=== PATIENT | female | born 2000 | race Caucasian/White ===

== ENCOUNTER 2023-01-11 14:53 | Emergency (ER) | payer MEDICAID, SELFPAY ==
[2023-01-11 15:06] VITALS: BP 105/68; PULSE 105; RESP 18; TEMP 37.4; O2SAT 99; BMI 31.2
--- NOTE | 2023-01-11 15:30 | ED_ITS ---
Documented by User: LIGIA Vasquez 01/12/23 08:59 HPI - General Adult General: Chief complaint: Upper Respiratory Infection Stated complaint: sore throat, fever Time Seen by Provider: 01/11/23 15:14 Source: patient Mode of arrival: ambulatory Limitations: no limitations History of Present Illness: Patient is a 22-year-old female presents to ED today with complaint of fevers, body aches, sore throat. She states symptoms are present over the past 3 to 4 days. No sick contacts. Patient states she has a history of strep throat that has presented identically. She has noticed exudates on her tonsils. She is still eating/drinking well. No N/V/D. Onset (ago): day(s) Severity: mild Exacerbating factors: other (swallowing) Associated symptoms: Deny chest pain, dyspnea, headache(s), malaise, nausea, rash or vomiting Treatments prior to arrival: none Review of Systems Const: Reports: fever(s), chills and body aches; Denies: fatigue or malaise Eyes: Denies: change in vision, blurry vision, photophobia, floaters or seeing flashes ENMT: Reports: throat pain and odynophagia; Denies: ear or mastoid pain, ear discharge, nasal discharge, nasal congestion, post nasal drip or sinus pain Card: Denies: chest pain Resp: Denies: dyspnea GI: Denies: abdominal pain, nausea, vomiting or diarrhea Musc: Denies: neck pain Skin/Breast: Denies: rash Neuro: Denies: headache(s) Physical Exam Const: COMMON NORMALS: no acute distress, average body habitus, patient oriented x3, no limitations, healthy appearing, alert and well nourished GENERAL APPEARANCE: cooperative ORIENTATION/CONSCIOUSNESS: Yes awake, Yes oriented to person, Yes oriented to place and Yes oriented to time HENMT: COMMON NORMALS: normocephalic, atraumatic, hearing grossly normal bilaterally, external ears normal, EAC's normal, TM's normal bilaterally, Normal external nose present, Normal nasal mucous membranes and turbinates present and moist oral mucous membranes HEAD & SCALP: normal to inspection, normocephalic and atraumatic FACE & SINUS: normal facial exam and sinuses nontender NOSE: Normal external nose present and Normal nasal mucous membranes and turbinates present EXTERNAL EAR: Yes external ears normal EXTERNAL AUDITORY CANAL: EAC's normal TYMPANIC MEMBRANE: TM's normal bilaterally MOUTH: Normal oral and palatal mucosa present, lip normal, tongue normal and Normal salivary glands and ducts present; no audible dysphonia, no drooling and no muffled voice THROAT: tonsils normal, uvula midline and posterior oropharynx abnormal erythema Eye: COMMON NORMALS: Equal, round and reactive pupils present, EOMs intact bilaterally and conjunctivae normal CONJUNCTIVA: Yes conjunctivae normal PUPIL: Yes Equal, round and reactive pupils present Neck/C-Spine: COMMON NORMALS: full ROM, no lymphadenopathy and no meningeal signs Resp: COMMON NORMALS: normal respiratory effort Cardio: COMMON NORMALS: regular rate and regular rhythm RATE: regular rate RHYTHM: regular rhythm Neuro: COMMON NORMALS: patient oriented x3 SENSORIUM/ORIENTATION: Yes alert, Yes oriented to person, Yes oriented to place and Yes oriented to time MENINGEAL SIGNS: Yes no meningeal signs Course ED course: Care transferred to Nancy Vitale PA-C pending strep results. Vital Signs: Vital signs: Vital Signs Temperature 99.3 F 01/11/23 15:06 Pulse Rate 105 H 01/11/23 15:06 Respiratory Rate 18 01/11/23 15:06 Blood Pressure 105/68 01/11/23 15:06 Pulse Oximetry 99 01/11/23 15:06 Oxygen Delivery Me thod Room Air 01/11/23 15:06 MDM - General Adult Lab Data Laboratory Results Group A Strep Rapid Negative (Negative) 01/11/23 15:25 Discharge Plan Discharge Patient Disposition: Home Clinical Impression: Pharyngitis, H/O streptococcal pharyngitis Condition: Stable Prescriptions: New amoxicillin 500 mg capsule 500 mg PO Q8H 7 Days Qty: 21 0RF Discharge Orders: Discharge ED (Routine); Ordered 01/11/23 Ordered By: Nancy Vitale Referrals: Isabella Glaser MD [Primary Care Provider] - Discharge Diet: Advance as tolerated Discharge Activity: Increase activity as tolerated Patient Instructions: Pharyngitis (ED) Activity Restrictions/Additional Instructions: Rapid strep test to test for strep A was negative today however, There are other strains of strep which presents similarly. due to your recurrent strep throat, we will provide you a prescription to hold for the next few days to continue to monitor if symptoms continue or worsen. Watch for any continued or worsening fevers, continued or worsening painful sore throat with difficulty swallowing saliva or fluids, or development of rash on your chest. If these occur you should start antibiotics and get a follow-up appoint with your primary care doctor. Stand Alone Forms: Work/School Release Sign Out Sign Out Data: Patient Sign Out occurred on 01/11/23 at 17:11. Patient's care was discussed, and care was transferred from LIGIA Vasquez to LIGIA Pabon. Coding Level of Care Code ED Marketing Planning Manager for [employer] Documented by User: LIGIA Pabon 01/12/23 00:50 HPI - General Adult General: Chief complaint: Upper Respiratory Infection Stated complaint: sore throat, fever Time Seen by Provider: 01/11/23 15:14 Course Vital Signs: Vital signs: Vital Signs Temperature 99.3 F 01/11/23 15:06 Pulse Rate 105 H 01/11/23 15:06 Respiratory Rate 18 01/11/23 15:06 Blood Pressure 105/68 01/11/23 15:06 Pulse Oximetry 99 01/11/23 15:06 Oxygen Delivery Me thod Room Air 01/11/23 15:06 MDM - General Adult Medical Decision Making LIGIA Bull-C: Transfer of care at 1700. Patient's rapid strep test came back negative. I did perform a physical examination of bedside of this patient and it does appear she has somewhat of a petechial rash develop to the tonsillar pillars and soft palate. Patient reports a significant past medical history of recurrent strep infections. After discussion, patient is being given a prescription of amoxicillin to hold for the next couple of days. She is to continue monitoring her symptoms. If she continues to have fevers, sore throat, any difficulty with swallowing liquids or development of rash on her chest she needs to start the antibiotics. Otherwise, patient has improvement of her symptoms over the next couple of days she can continue to treat symptomatically with [id number] medications until she is back to baseline. Patient verbalizes understanding and agreement to treatment plan. Differential Diagnosis DDx: Strep A, viral pharyngitis, mononucleosis, peritonsillar abscess, postnasal drip pharyngitis Lab Data Laboratory Results Group A Strep Rapid Negative (Negative) 01/11/23 15:25 No radiology studies performed this visit Discharge Plan Discharge Patient Disposition: Home Clinical Impression: Pharyngitis, H/O streptococcal pharyngitis Condition: Stable Prescriptions: New amoxicillin 500 mg capsule 500 mg PO Q8H 7 Days Qty: 21 0RF Discharge Orders: Discharge ED (Routine); Ordered 01/11/23 Ordered By: Nancy Vitale Referrals: Isabella Glaser MD [Primary Care Provider] - Discharge Diet: Advance as tolerated Discharge Activity: Increase activity as tolerated Patient Instructions: Pharyngitis (ED) Activity Restrictions/Additional Instructions: Rapid strep test to test for strep A was negative today however, There are other strains of strep which presents similarly. due to your recurrent strep throat, we will provide you a prescription to hold for the next few days to continue to monitor if symptoms continue or worsen. Watch for any continued or worsening fevers, continued or worsening painful sore throat with difficulty swallowing saliva or fluids, or development of rash on your chest. If these occur you sh ould start antibiotics and get a follow-up appoint with your primary care doctor. Stand Alone Forms: Work/School Release Sign Out Sign Out Data: Patient Sign Out occurred on 01/11/23 at 17:11. Patient's care was discussed, and care was transferred from LIGIA Vasquez to LIGIA Pabon. Coding Level of Care Code ED Marketing Planning Manager for Briana Powell
[2023-01-11 17:09] LABS: Rapid Strep A Test Negative (Negative)
== END 2023-01-11 17:35 | disposition home or self-care (01) ==
PROVIDERS: Emergency Medicine; Emergency Provider Physician Assistant; PCP Pediatrics Adolescent Medicine
DX: J02.9 Acute pharyngitis, unspecified (principal)
CPT/HCPCS: 87081; 87880; 99283

== ENCOUNTER → 2023-03-03 08:42 | Outpatient (BNVA) | payer MEDICAID, SELFPAY | PROVIDERS: PCP Pediatrics Adolescent Medicine; Visit Provider Nurse Practitioner Women's Health | DX: Z30.9 Encounter for contraceptive management, unspecified (principal) | CPT/HCPCS: 81025 ==

== ENCOUNTER 2023-08-24 17:33 | Outpatient (CLI) | payer MEDICAID, SELFPAY | END 2023-08-24 17:34 | disposition home or self-care (01) | LOC: LAB 17:34 | PROVIDERS: PCP Pediatrics Adolescent Medicine; Visit Provider Nurse Practitioner Women's Health | DX: E28.2 Polycystic ovarian syndrome (principal) | CPT/HCPCS: 36415; 84702 ==

== ENCOUNTER 2023-08-26 16:57 | Outpatient (CLI) | payer MEDICAID, SELFPAY | END 2023-08-26 16:58 | disposition home or self-care (01) | LOC: LAB 16:58 | PROVIDERS: PCP Pediatrics Adolescent Medicine; Visit Provider Nurse Practitioner Women's Health | DX: O36.80X0 Pregnancy with inconclusive fetal viability, not applicable or unspecified (principal) | CPT/HCPCS: 36415; 84702 ==

== ENCOUNTER → 2023-08-31 08:20 | Outpatient (BNVA) | payer MEDICAID, SELFPAY | PROVIDERS: PCP Pediatrics Adolescent Medicine; Visit Provider Nurse Practitioner Women's Health | DX: Z34.90 Encounter for supervision of normal pregnancy, unspecified, unspecified trimester (principal) | CPT/HCPCS: 84702 ==

== ENCOUNTER → 2023-09-10 08:03 | Outpatient (BNVA) | payer MEDICAID, SELFPAY | PROVIDERS: PCP Pediatrics Adolescent Medicine; Visit Provider Nurse Practitioner Women's Health | DX: N92.6 Irregular menstruation, unspecified (principal); E28.2 Polycystic ovarian syndrome | CPT/HCPCS: 81025; 83036; 84439; 84443 ==

== ENCOUNTER → 2023-09-16 15:21 | Outpatient (BNVA) | payer MEDICAID, SELFPAY | PROVIDERS: PCP Pediatrics Adolescent Medicine; Visit Provider Obstetrics & Gynecology | DX: E28.2 Polycystic ovarian syndrome (principal); N92.6 Irregular menstruation, unspecified | CPT/HCPCS: 76801 ==

== ENCOUNTER → 2023-10-04 07:47 | Outpatient (BNVA) | payer MEDICAID, SELFPAY | PROVIDERS: PCP Pediatrics Adolescent Medicine; Visit Provider Nurse Practitioner Women's Health | DX: Z34.01 Encounter for supervision of normal first pregnancy, first trimester (principal); Z34.90 Encounter for supervision of normal pregnancy, unspecified, unspecified trimester | CPT/HCPCS: 80307; 82950; 84315; 85025; 86592; 86762; 86803; 86850; 86900; 87086; 87340; 87806 ==

== ENCOUNTER → 2023-10-15 08:14 | Outpatient (BNVA) | payer MEDICAID, SELFPAY | PROVIDERS: PCP Pediatrics Adolescent Medicine; Visit Provider Obstetrics & Gynecology | DX: Z34.01 Encounter for supervision of normal first pregnancy, first trimester (principal) | CPT/HCPCS: 84315; 87491; 87591; 88175 ==

== ENCOUNTER 2023-10-20 16:44 | Emergency (ER) | payer MEDICAID, SELFPAY ==
[2023-10-20 17:00] VITALS: BP 118/81; PULSE 87; RESP 16; TEMP 36.7; O2SAT 99; BMI 28.5
[2023-10-20 17:03] VITALS: BP 118/81; PULSE 87; O2SAT 99
[2023-10-20 17:07] LABS: Basophils % 0.4 %; Eosinophils # 0.1 10^3/uL (0.0-0.8); Eosinophils % 1.2 %; Hematocrit 37.9 % (36-47); Lymphocytes # 2.3 10^3/uL (0.8-4.8); Lymphocytes % 20.4 %; Mean Corpuscular HGB Conc 32.7 g/dL (30-55); Mean Corpuscular Hemoglobin 31.2 pg (27-33); Mean Corpuscular Volume 95.2 fl (85-98); Mean Platelet Volume 10.4 fL (7.4-10.4); Monocytes # 0.7 10^3/uL (0.2-0.9); Monocytes % 6.1 %; Neutrophils % 71.6 %; Nucleated Red Blood Cells % 0 %; Platelet Count 273 10^3/cmm (157-399); Red Blood Count 3.98 10^6/uL (3.85-5.65); Red Cell Distribution Width 12.2 % (12.1-15.1); White Blood Count 11.31 10^3/uL (3.29-11.43)
--- NOTE | 2023-10-20 17:13 | ED_ITS ---
HPI - 2 General: Chief complaint: Vaginal Bleeding Stated complaint: 13 wks preg - bleeding/cramping Time Seen by Provider: 10/20/23 16:51 Source: patient Mode of arrival: ambulatory Limitations: no limitations History of Present Illness: 23-year-old female states she is current ly 13 weeks she states that she had some very mild spotting last night with some cramping states that the bleeding is stopped today but still having some lower cramping whenever being checked. She rates the pain a 2 out of 10 she denies any fevers denies any vomiting or diarrhea. Denies passing any clots or tissue Associated symptoms: Reports abdominal pain; Deny dysuria, headache(s), nausea or vomiting Related Data Home Medications Medication Instructions Recorded Confirmed vits no.126-ferrous fum tab PO DAILY 09/10/23 10/15/23 28 mg iron-folic acid 800 mcg tablet (Classic ) Previous Rx's Medication Instructions Recorded ondansetron 4 mg disintegrating 4 mg PO Q8H PRN nausea and 09/21/23 tablet vomiting #60 tabs Allergies Allergy/AdvReac Type Severity Reaction Status Date / Time No Known Allergies Allergy Verified 10/15/23 13:33 Review of Systems 2 Const: Denies: fever(s), chills, body aches or change in appetite ENMT: Denies: throat pain or dental pain Card: Denies: chest pain Resp: Denies: dyspnea GI: Reports: abdominal pain; Denies: nausea, vomiting or diarrhea : Reports: vaginal bleeding; Denies: dysuria Musc: Denies: neck pain or back pain Skin/Breast: Denies: rash Neuro: Denies: headache(s) PFSH ED 2 PFSH: Medical History PCOS (polycystic ovarian syndrome) Surgical History No pertinent past surgical history Family History Denies family history of Colon cancer Ovarian cancer Diabetes Heart disease Breast cancer Hypertension Uterine cancer Thyroid disease Stroke Social History Smoking and tobacco/nicotine status: current every day tobacco/nicotine user Physical Exam 2 Const: COMMON NORMALS: no acute distress, patient oriented x3 and healthy appearing HENMT: COMMON NORMALS: normocephalic and atraumatic HEAD & SCALP: n ormocephalic and atraumatic Eye: COMMON NORMALS: conjunctivae normal CONJUNCTIVA: Yes conjunctivae normal Neck/C-Spine: COMMON NORMALS: full ROM Chest: COMMONS NORMALS: normal inspection of the chest Resp: COMMON NORMALS: normal respiratory effort Cardio: COMMON NORMALS: regular rate, regular rhythm and No murmurs present (Cardio) RATE: regular rate RHYTHM: regular rhythm GI: COMMON NORMALS: Normal to inspection, nondistended, normoactive bowel sounds present, Soft to palpation, non-tender and no masses PALPATION: Yes Soft to palpation Extremity: COMMON NORMALS: normal to inspection and full ROM Neuro: COMMON NORMALS: patient oriented x3, moves all extremities and no focal motor deficits Psych: COMMON NORMALS: mental status grossly normal, Normal thought process present and cooperative THOUGHT PROCESS: Normal thought process present Skin: COMMON NORMALS: no rashes or lesions noted and no wounds GENERAL SKIN EXAM: no rashes or lesions noted Course 2 Vital Signs: Vital signs: Vital Signs Temperature 98.0 F 10/20/23 17:00 Pulse Rate 87 10/20/23 17:03 Respiratory Rate 16 10/20/23 17:00 Blood Pressure 118/81 10/20/23 17:03 Pulse Oximetry 99 10/20/23 17:03 Oxygen Delivery Me thod Room Air 10/20/23 17:00 MDM - OB/Uterine Contractions Medical Decision Making Patient presents with cramping along with spotting in I did a bedside ultrasound showed IUP consistent dates heart rate 146 she is been well- appearing here no signs of appendicitis she is to follow-up with her OB and return if worsening she understands agrees to plan. Medical Records I reviewed the patient's medical records. Lab Data I reviewed the patient's lab results. 10/20/23 16:57 Laboratory Results WBC 11.31 10^3/uL (3.29-11.43) 10/20/23 16:57 RBC 3.98 10^6/uL (3.85-5.65) 10/20/23 16:57 Hgb 12.40 g/dL (11.27-16.99) 10/20/23 16:57 Hct 37.9 % (36-47) 10/20/23 16:57 MCV 95.2 fl (85-98) 10/20/23 16:57 MCH 31.2 pg (27-33) 10/20/23 16:57 MCHC 32.7 g/dL (30-55) 10/20/23 16:57 RDW 12.2 % (12.1-15.1) 10/20/23 16:57 Plt Count 273 10^3/cmm (157-399) 10/20/23 16:57 MPV 10.4 fL (7.4-10.4) 10/20/23 16:57 Neut % (Auto) 71.6 % 10/20/23 16:57 Lymph % (Auto) 20.4 % 10/20/23 16:57 [place] % (Auto) 6.1 % 10/20/23 16:57 Eos % (Auto) 1.2 % 10/20/23 16:57 Baso % (Auto) 0.4 % 10/20/23 16:57 Neut # (Auto) 8.10 10^3/uL (1.8-7.7) H 10/20/23 16:57 Lymph # (Auto) 2.3 10^3/uL (0.8-4.8) 10/20/23 16:57 [place] # (Auto) 0.7 10^3/uL (0.2-0.9) 10/20/23 16:57 Eos # (Auto) 0.1 10^3/uL (0.0-0.8) 10/20/23 16:57 Baso # (Auto) 0.0 10^3/uL (0.0-0.1) 10/20/23 16:57 Nucleated RBC % (auto) 0 % 10/20/23 16:57 Nucleated RBCs # 0.0 /100WBC 10/20/23 16:57 Ser , Semi-Qnt 22869.00 mIU/mL 10/20/23 16:57 Urine Color Yellow (Yellow) 10/20/23 18:09 Urine Appearance Cloudy (CLEAR) A 10/20/23 18:09 Urine pH 6.5 (5-7) 10/20/23 18:09 Ur Specific [place] 1.017 (1.005-1.030) 10/20/23 18:09 Urine Protein Negative (Negative) 10/20/23 18:09 Urine Glucose (UA) Negative (Normal) 10/20/23 18:09 Urine Ketones Negative (Negative) 10/20/23 18:09 Urine Blood Negative (Negative) 10/20/23 18:09 Urine Nitrate Negative (Negative) 10/20/23 18:09 Urine Bilirubin Negative (Negative) 10/20/23 18:09 Urine Urobilinogen 1.0 mg/dL (Negative) 10/20/23 18:09 Ur Leukocyte Esterase Trace (Negative) A 10/20/23 18:09 Urine RBC 0-2 /hpf (0-2) 10/20/23 18:09 Urine WBC 0-5 /hpf (0-5) 10/20/23 18:09 Ur Squamous Epith Cells 0-5 /hpf (0-5) 10/20/23 18:09 Amorphous Sediment Not Reportable 10/20/23 18:09 Urine Bacteria None seen /hpf (NONE) 10/20/23 18:09 Hyaline Casts 0-4 /lpf H 10/20/23 18:09 No radiology studies performed this visit Discharge Plan Discharge Patient Disposition: Home Clinical Impression: Threatened miscarriage Condition: Stable Prescriptions: No Action Classic 28 mg iron- 800 mcg tablet PO DAILY ondansetron 4 mg tablet,disintegrating 4 mg PO Q8H PRN (Reason: nausea and vomiting) Qty: 60 0RF Discharge Orders: Discharge ED (Routine); Ordered 10/20/23 Ordered By: Phillip Thomas Referrals: Isabella Glaser MD [Primary Care Provider] - Discharge Diet: Advance as tolerated Discharge Activity: Resume usual activity Patient Instructions: Threatened Miscarriage (ED) Coding Level of Care Code ED [address] [address] Service for Briana Powell
[2023-10-20 18:36] LABS: Bilirubin Urine Negative (Negative); Blood Urine Negative (Negative); Glucose Urine UA Negative (Normal); Ketones Urine Negative (Negative); Leukocyte Esterase Urine Trace (Negative); Nitrate Urine Negative (Negative); Protein Urine Negative (Negative); Specific Gravity, Urine 1.017 (1.005-1.030); Urine Appearance Cloudy (CLEAR); Urine Color Yellow (Yellow); pH Urine 6.5 (5-7)
[2023-10-20 18:41] LABS: Add Urine Microscopic? YES; Bacteria Urine None Seen /hpf; Hyaline Casts Urine 0-4 /lpf; RBC Urine 0-2 /hpf (0-2); Squamous Epithelial Cell Urine 0-5 /hpf (0-5); WBC Urine 0-5 /hpf (0-5)
[2023-10-20 19:02] LABS: Add Urine Culture? No
[2023-10-20 19:22] VITALS: BP 94/52; PULSE 60; O2SAT 97
== END 2023-10-20 19:23 | disposition home or self-care (01) ==
PROVIDERS: Emergency Provider Emergency Medicine; PCP Pediatrics Adolescent Medicine
DX: O20.0 Threatened abortion (principal); Z3A.13 13 weeks gestation of pregnancy; O99.331 Smoking (tobacco) complicating pregnancy, first trimester; F17.200 Nicotine dependence, unspecified, uncomplicated
CPT/HCPCS: 36415; 81001; 84702; 85025; 99283

== ENCOUNTER → 2023-11-11 08:39 | Outpatient (BNVA) | payer MEDICAID, SELFPAY | PROVIDERS: PCP Pediatrics Adolescent Medicine; Visit Provider Nurse Practitioner Women's Health | DX: Z34.01 Encounter for supervision of normal first pregnancy, first trimester (principal); Z34.90 Encounter for supervision of normal pregnancy, unspecified, unspecified trimester | CPT/HCPCS: 81000; 82105 ==

== ENCOUNTER → 2023-12-09 14:31 | Outpatient (BNVA) | payer MEDICAID, SELFPAY | PROVIDERS: PCP Pediatrics Adolescent Medicine; Visit Provider Nurse Practitioner Women's Health | DX: Z36.2 Encounter for other antenatal screening follow-up (principal); Z3A.20 20 weeks gestation of pregnancy | CPT/HCPCS: 76805 ==

== ENCOUNTER → 2024-01-04 13:51 | Outpatient (BNVA) | payer MEDICAID, SELFPAY | PROVIDERS: PCP Pediatrics Adolescent Medicine; Visit Provider Nurse Practitioner Women's Health | DX: Z34.92 Encounter for supervision of normal pregnancy, unspecified, second trimester (principal); Z3A.24 24 weeks gestation of pregnancy | CPT/HCPCS: 76816; 81000; 82950 ==

== ENCOUNTER 2024-01-23 16:29 | Outpatient (CLI) | payer MEDICAID, SELFPAY ==
[2024-01-23 16:36] VITALS: BP 112/65; PULSE 104
[2024-01-23 17:00] VITALS: BMI 32.1
[2024-01-23 17:02] VITALS: BP 109/59; PULSE 96
[2024-01-23 17:06] VITALS: BP 108/59; PULSE 85
[2024-01-23 17:08] LABS: Bilirubin Urine Negative (Negative); Blood Urine Non-haemolysed trace (Negative); Glucose Urine UA Negative (Normal); Ketones Urine Negative (Negative); Leukocyte Esterase Urine Negative (Negative); Nitrate Urine Negative (Negative); Protein Urine Negative (Negative); Specific Gravity, Urine 1.023 (1.005-1.030); Urine Appearance Cloudy (CLEAR); Urine Color Yellow (Yellow); Urobilinogen Urine 0.2 mg/dL (Negative)
[2024-01-23 17:11] LABS: Bacteria Urine 1+ /hpf; Hyaline Casts Urine 1.21 /lpf
[2024-01-23 17:21] VITALS: BP 105/63; PULSE 93
== END 2024-01-23 17:35 | disposition home or self-care (01) ==
LOC: OPOB 16:30 → OBGYN 16:31
PROVIDERS: PCP Pediatrics Adolescent Medicine; Visit Provider Obstetrics & Gynecology
DX: O36.8190 Decreased fetal movements, unspecified trimester, not applicable or unspecified (principal); Z3A.00 Weeks of gestation of pregnancy not specified; R10.9 Unspecified abdominal pain
CPT/HCPCS: 81001; 99211

== ENCOUNTER → 2024-02-03 13:30 | Outpatient (BNVA) | payer MEDICAID, SELFPAY | PROVIDERS: PCP Pediatrics Adolescent Medicine; Visit Provider Obstetrics & Gynecology | DX: O99.331 Smoking (tobacco) complicating pregnancy, first trimester (principal) | CPT/HCPCS: 84315; 85025 ==

== ENCOUNTER → 2024-02-24 10:56 | Outpatient (BNVA) | payer MEDICAID, SELFPAY | PROVIDERS: PCP Pediatrics Adolescent Medicine; Visit Provider Obstetrics & Gynecology | DX: Z34.01 Encounter for supervision of normal first pregnancy, first trimester (principal); Z3A.00 Weeks of gestation of pregnancy not specified | CPT/HCPCS: 84315 ==

== ENCOUNTER → 2024-03-17 14:09 | Outpatient (BNVA) | payer MEDICAID, SELFPAY | PROVIDERS: PCP Pediatrics Adolescent Medicine; Visit Provider Nurse Practitioner Women's Health | DX: Z34.90 Encounter for supervision of normal pregnancy, unspecified, unspecified trimester (principal) | CPT/HCPCS: 84315; 85025 ==

== ENCOUNTER → 2024-03-31 15:11 | Outpatient (BNVA) | payer MEDICAID, SELFPAY | PROVIDERS: PCP Pediatrics Adolescent Medicine; Visit Provider Obstetrics & Gynecology | DX: Z34.01 Encounter for supervision of normal first pregnancy, first trimester (principal) | CPT/HCPCS: 84315; 87081 ==

== ENCOUNTER → 2024-04-05 14:17 | Outpatient (BNVA) | payer MEDICAID, SELFPAY | PROVIDERS: PCP Pediatrics Adolescent Medicine; Visit Provider Nurse Practitioner Women's Health | DX: O26.893 Other specified pregnancy related conditions, third trimester (principal); Z3A.36 36 weeks gestation of pregnancy | CPT/HCPCS: 76816 ==

== ENCOUNTER → 2024-04-07 15:22 | Outpatient (BNVA) | payer MEDICAID, SELFPAY | PROVIDERS: PCP Pediatrics Adolescent Medicine; Visit Provider Obstetrics & Gynecology | DX: Z34.90 Encounter for supervision of normal pregnancy, unspecified, unspecified trimester (principal) | CPT/HCPCS: 84315 ==

== ENCOUNTER → 2024-04-14 16:06 | Outpatient (BNVA) | payer MEDICAID, SELFPAY | PROVIDERS: PCP Pediatrics Adolescent Medicine; Visit Provider Obstetrics & Gynecology | DX: Z34.90 Encounter for supervision of normal pregnancy, unspecified, unspecified trimester (principal) | CPT/HCPCS: 84315 ==

== ENCOUNTER 2024-04-17 20:11 | Inpatient (IN) | payer MEDICAID, SELFPAY ==
[2024-04-17] VITALS (9 sets, daily range): BP systolic 113–130; BP diastolic 59–84; PULSE 78–104; BMI 36.5
--- NOTE | 2024-04-17 10:04 | PM.OPHPUD ---
Labor & Delivery H&P Update Date of Procedure: April 17, 2024 Date H&P Performed: 04/14/24 Changes to previous documentation: 23-year-old female G1, P0 at 39 weeks gestation with JACE 04/25/2023 admitted to labor and delivery for induction of labor with cervical ripening. EFM?category 1 Cervix?closed/thick Ultrasound confirmation of vertex presentation. Discussion in great depth of Cytotec used for cervical ripening and if nonreassuring monitoring occurs may indicate need for section delivery instead of a vaginal delivery. Pitocin also reviewed for increasing contractions and contraction intensity if needed. Patient and partner had many questions stating that Cytotec was not FDA approved for induction and risk involved. I reviewed Cytotec/Cervidil medication use for cervical ripening. I also discussed the option of counseling induction awaiting 1 or 2 weeks more for spontaneous labor to occur, patient and significant other elected to proceed with Cytotec. I reviewed the baby looks good on external monitoring and that induction elective at this time if she would desire to wait. Admission Diagnosis: Primary indication for procedure: Elective induction of labor Planned procedure: Cervical ripening with Cytotec/induction of labor Related Problem List Diagnoses (1) 39 weeks gestation of : Admit for elective induction of labor with cervical ripening?Cytotec. (2) Anemia complicating , third trimester: (3) ASCUS (atypical squamous cells of undetermined significance) on gynecologic Papanicolaou smear complicating , antepartum: (4) Rubella non-immune status, antepartum: (5) Tobacco use in : (6) Anxiety and depression: (7) Supervision of normal first :
[2024-04-17 10:54] LABS: Basophils % 0.3 %; Eosinophils # 0.1 10^3/uL (0.0-0.8); Eosinophils % 1.1 %; Hematocrit 33.2 % (36-47); Lymphocytes # 1.6 10^3/uL (0.8-4.8); Lymphocytes % 17.2 %; Mean Corpuscular Hemoglobin 29.2 pg (27-33); Mean Corpuscular Volume 94.1 fl (85-98); Mean Platelet Volume 11.3 fL (7.4-10.4); Monocytes # 1.2 10^3/uL (0.2-0.9); Monocytes % 12.1 %; Neutrophils # 6.52 10^3/uL (1.8-7.7); Neutrophils % 68.9 %; Nucleated Red Blood Cells % 0 %; Platelet Count 238 10^3/cmm (157-399); Red Blood Count 3.53 10^6/uL (3.85-5.65); Red Cell Distribution Width 13.3 % (12.1-15.1); White Blood Count 9.47 10^3/uL (3.29-11.43)
[2024-04-17] MEDS: miSOPROStol 100 mcg tablet 25 MCG VAGINAL ×2 (11:11→20:13)
--- NOTE | 2024-04-17 20:35 | P.PN_ITS ---
CIVIL GEOTECHNICAL ENGINEER Subjective 2 Subjective: Interval history: This note was written on April 17, 2024, at 1735 23 y.o. G1 At 39 w 0 d No complications Admitted this morning for elective induction of labor OB sono done 04-05-24 - Vtx; WNL GBS negative fetus reassuring Cervix: 1 cm / long / -4 Plan repeat Cytotec 25 ug intravaginal Labor: Station: +1 Amniotic Membrane Status: Intact Monitor Mode: Palpation Contraction Pattern: Irregular Vitals/I&O/Wt Last Vital Signs Temp 99.3 F 04/18/24 13:12 Pulse 98 04/18/24 14:37 BP 112/58 04/18/24 14:37 Pulse Ox 98 04/18/24 00:22 O2 Del Method Room Air 04/17/24 09:08 04/18/24 04/18/24 04/18/24 06:59 14:59 22:59 Intake Total 1100 / 1100 1600 / 1600 1000 / 2600 Balance 1100 / 1100 1600 / 1600 1000 / 2600 Weight last 48 hrs Weight 219 lb 8 oz Physical Exam 2 Urinary Catheter Management: Guerrero Latex: Cath Placed During This Visit: yes, but has since been removed by the nurse Reason for Continuing Indwelling Catheter: Decision to DC Catheter Urinary Catheter Date of Insertion: 04/18/24 Urinary Catheter Time of Insertion: 01:05 Date Urinary Catheter Removed: 04/18/24 Time Urinary Catheter Discontinued: 09:28 Data 04/17/24 10:47 A&P Assessment and plan (1) 39 weeks gestation of : PDMP PDMP Reviewed: Not Reviewed Attestations 2 Medical Necessity Statement*: Patient at 39 w 0 d; admitted for induction of labor Coding Level of Care Code Acute Code for Chg Fwd Diagnoses 39 weeks gestation of Z3A.39 Time Spent (min) 30
--- NOTE | 2024-04-17 22:40 | P.PN_ITS ---
BULK PLANT AGENT Subjective 2 Subjective: Interval history: Fetus reassuring Comfortable with epidural Cx: 1 cm / long / -3 Labor: Station: +1 Amniotic Membrane Status: Intact Monitor Mode: Palpation Contraction Pattern: Irregular Vitals/I&O/Wt Last Vital Signs Temp 99.3 F 04/18/24 13:12 Pulse 98 04/18/24 14:37 BP 112/58 04/18/24 14:37 Pulse Ox 98 04/18/24 00:22 O2 Del Method Room Air 04/17/24 09:08 04/18/24 04/18/24 04/18/24 06:59 14:59 22:59 Intake Total 1100 / 1100 1600 / 1600 1000 / 2600 Balance 1100 / 1100 1600 / 1600 1000 / 2600 Weight last 48 hrs Weight 219 lb 8 oz Physical Exam 2 Urinary Catheter Management: Guerrero Latex: Cath Placed During This Visit: yes, but has since been removed by the nurse Reason for Continuing Indwelling Catheter: Decision to DC Catheter Urinary Catheter Date of Insertion: 04/18/24 Urinary Catheter Time of Insertion: 01:05 Date Urinary Catheter Removed: 04/18/24 Time Urinary Catheter Discontinued: 09:28 Data 04/17/24 10:47 A&P Assessment and plan (1) 39 weeks gestation of : PDMP PDMP Reviewed: Not Reviewed Attestations 2 Medical Necessity Statement*: Patient at 39 w 0 d; admitted for induction of labor Coding Level of Care Code Acute Code for Chg Fwd Diagnoses 39 weeks gestation of Z3A.39 Time Spent (min) 30
[2024-04-17] MEDS: lactated ringers 1,000 ML 999 ML IV (23:09)
[2024-04-17] MEDS: ondansetron 2 mg/ML SDV 2 mL 4 MG IVP (23:54)
[2024-04-18] VITALS (56 sets, daily range): BP systolic 90–145; BP diastolic 51–90; PULSE 72–116; RESP 16; TEMP 36.9–37.7; O2SAT 98–99
[2024-04-18] MEDS: dextrose 5%-lactated ringers 1,000 ML 125 ML IV ×2 (00:10→08:10)
[2024-04-18] MEDS: ROPivacaine syringe 100 MG/50 ML SYRINGE 13 MG EPIDURAL ×4 (00:20→09:27)
--- NOTE | 2024-04-18 00:21 | ANES.PREANE2 ---
Pre-Anesthetic Assessment Height/Weight: Height 1.65 m Weight 99.564 kg Pulse BP Pulse Ox O2 Del Method 83 132/88 99 Room Air 04/18/24 00:18 04/18/24 00:18 04/18/24 00:17 04/17/24 09:08 Preop Diagnosis: labor pain epidural Familial anesthetic complications: none Was Beta Raven taken within 24 hours: N/A Was Clonidine taken within 24 hours: N/A Last Intake: 22:30 Social No alcohol and No tobacco Exam alert and oriented x 3 Airway Submandibular: within normal limits Cervical ROM: within normal limits Mallampati: Class II Dentition: full History/ROS No significant history except as noted GI Gastroesophageal Reflux Disease Anesthetic Plan ASA status: 2 Anesthesia: Anesthesia Evaluation and Regional (specify below) Medications/Allergies Home Medications ?Medication ?Instructions ?Recorded ?Confirmed ?Last Taken ?Type vits no.126-ferrous fum 1 tab PO DAILY 09/10/23 04/17/24 Unknown History 28 mg iron-folic acid 800 mcg tablet (Classic ) famotidine 20 mg tablet 20 mg PO BID #60 tabs 01/04/24 04/17/24 Unknown Rx Allergies Allergy/AdvReac Type Severity Reaction Status Date / Time No Known Allergies Allergy Verified 04/14/24 15:26 Current Medications Generic Name Dose Route Start Last Admin Trade Name Freq PRN Reason Stop Dose Admin Lactated Ringer's 1,000 mls @ 999 mls/hr 04/17/24 22:50 04/17/24 23:09 Lactated Ringers IV 999 mls/hr .Q1H1M PRN Administration See label comments Ondansetron HCl 4 mg 04/17/24 10:10 04/17/24 23:54 Ondansetron 2 Mg/Ml Sdv 2 Ml IVP 4 mg Q4H PRN Administration NAUSEA AND VOMITING PFSH Anesthesia Medical History No pertinent past medical history neghx: htn, dm, thyroid, dvt/pe PCP: none PCOS (polycystic ovarian syndrome) Surgical History No pertinent past surgical history Family History Denies family history of Colon cancer Ovarian cancer Diabetes Heart disease Breast cancer Hypertension Uterine cancer Thyroid disease Stroke Social History Smoking and tobacco/nicotine status: former use of tobacco/nicotine (10/2023) Female Reproductive History : 1 Data Anesthesia 04/17/24 10:47 Short CBC 04/17/24 Range/Units 10:47 WBC 9.47 (3.29-11.43) 10^3/uL Hgb 10.30 L (11.27-16.99) g/dL Hct 33.2 L (36-47) % MCV 94.1 (85-98) fl Plt Count 238 (157-399) 10^3/cmm Neut % (Auto) 68.9 % Neut # (Auto) 6.52 (1.8-7.7) 10^3/uL Blood Bank 04/17/24 10:47 Blood Type O Positive Rho(D) Type Rh positive Antibody Screen Negative Cardiac Studies: No Data to Display
--- NOTE | 2024-04-18 00:24 | ANES.PROC ---
Anesthesia Procedures Procedure/Date: 04/18/24 Epidural: Time Out Performed: Yes Consents Signed: Procedure Consent Consent: from patient, risks and benefits reviewed and patient agrees to proceed Lumbar Level: L3-L4 Epidural position: sitting Epidural procedure: sterile prep of area, 1% lidocaine to numb the area, 18 g needle, negative for paresthesia passed, test dose given, 1.5% xylocaine 1:200k epi, placed PCEA, no systemic response, sterile dressing applied, L.U.D. no apparent complications and 0.2% Ropiavacaine @ mls/hr (13) Additional Comments: LELAND at 6.5, taped at 12 at skin. negative heme/CSF upon aspiration.
--- NOTE | 2024-04-18 01:10 | PM.OBGYPN ---
DIRECTOR BUSINESS INTEGRATION Subjective Subjective: Interval history: Fetus reassuring Comfortable with epidural Cx: 4 / 95 / -1 Labor: Station: +1 Amniotic Membrane Status: Intact Monitor Mode: Palpation Contraction Pattern: Irregular Vitals/I&O/Wt Last Vital Signs Temp 99.3 F 04/18/24 13:12 Pulse 82 04/18/24 18:30 Resp 16 04/18/24 18:30 BP 118/72 04/18/24 18:30 Pulse Ox 98 04/18/24 00:22 O2 Del Method Room Air 04/17/24 09:08 04/18/24 04/18/24 04/18/24 06:59 14:59 22:59 Intake Total 1100 / 1100 1600 / 1600 1000 / 2600 Balance 1100 / 1100 1600 / 1600 1000 / 2600 Weight last 48 hrs Weight 219 lb 8 oz Physical Exam Urinary Catheter Management: Guerrero Latex: Cath Placed During This Visit: yes, but has since been removed by the nurse Reason for Continuing Indwelling Catheter: Decision to DC Catheter Urinary Catheter Date of Insertion: 04/18/24 Urinary Catheter Time of Insertion: 01:05 Date Urinary Catheter Removed: 04/18/24 Time Urinary Catheter Discontinued: 09:28 Data 04/17/24 10:47 A&P Assessment and plan (1) 39 weeks gestation of : PDMP PDMP Reviewed: Not Reviewed Attestations Medical Necessity Statement*: Patient at 39 w 0 d; admitted for induction of labor Coding Level of Care Code Acute Code for Chg Fwd Diagnoses 39 weeks gestation of Z3A.39 Time Spent (min) 30
--- NOTE | 2024-04-18 08:00 | P.PN_ITS ---
PEDIATRIC CRITICAL CARE NURSE Subjective 2 Subjective: Interval history: Fetus reassuring Comfortable with epidural Cx: 9.5 / -1 Labor: Station: +1 Amniotic Membrane Status: Intact Monitor Mode: Palpation Contraction Pattern: Irregular Vitals/I&O/Wt Last Vital Signs Temp 99.3 F 04/18/24 13:12 Pulse 82 04/18/24 18:30 Resp 16 04/18/24 18:30 BP 118/72 04/18/24 18:30 Pulse Ox 98 04/18/24 00:22 O2 Del Method Room Air 04/17/24 09:08 04/18/24 04/18/24 04/18/24 06:59 14:59 22:59 Intake Total 1100 / 1100 1600 / 1600 1000 / 2600 Balance 1100 / 1100 1600 / 1600 1000 / 2600 Weight last 48 hrs Weight 219 lb 8 oz Physical Exam 2 Urinary Catheter Management: Guerrero Latex: Cath Placed During This Visit: yes, but has since been removed by the nurse Reason for Continuing Indwelling Catheter: Decision to DC Catheter Urinary Catheter Date of Insertion: 04/18/24 Urinary Catheter Time of Insertion: 01:05 Date Urinary Catheter Removed: 04/18/24 Time Urinary Catheter Discontinued: 09:28 Data 04/17/24 10:47 A&P Assessment and plan (1) 39 weeks gestation of : PDMP PDMP Reviewed: Not Reviewed Attestations 2 Medical Necessity Statement*: Patient at 39 w 0 d; admitted for induction of labor Coding Level of Care Code Acute Code for Chg Fwd Diagnoses 39 weeks gestation of Z3A.39 Time Spent (min) 30
--- NOTE | 2024-04-18 09:25 | PM.DELIVERY ---
Delivery Note: Date of delivery: April 18, 2024 Pre-delivery diagnoses: 39 w 0 d induction of labor Post-delivery diagnoses: 39 w 0 d induction of labor vaginal delivery repair of first-degree perineal laceration Procedure: induction of labor vaginal delivery repair of first-degree perineal laceration Op report anesthesia: Epidural Delivering Physician: Todd Neil MD Estimated blood loss (mL): 300 Findings: , vigorous infant Cord gases and blood obtained Normal placenta and cord Small 2 cm first-degree perineal laceration repaired EBL: 300 cc No complications Pre-Delivery Course: normal labor course fetus reassuring throughout Delivery: vaginal Post-Delivery Status: good History History History 1 Term 0 Miscarriages/Ectopic Living Children A&P Assessment and plan (1) Vaginal delivery: PDMP PDMP Reviewed: Not Reviewed Coding Level of Care Code Acute Code for Chg Fwd Diagnoses Vaginal delivery O80 Time Spent (min) 60
[2024-04-18] MEDS: oxytocin 30 UNIT/500 ML BAG 600 UNIT IV (10:09)
[2024-04-18] MEDS: benzocaine-menthol 78 gm Canister 1 SPRAY TOPICAL (13:12)
[2024-04-18] MEDS: lanolin oint 7 gm 1 APPLIC TOPICAL (13:12)
[2024-04-18] MEDS: acetaminophen 325 mg Tablet 650 MG PO (13:12)
[2024-04-18] MEDS: docusate sodium 100 mg Capsule PO (17:37)
[2024-04-18] MEDS: ibuprofen 800 mg tablet PO (21:07)
[2024-04-18 22:50] LABS: Hematocrit 29.7 % (36-47); Mean Corpuscular HGB Conc 31.6 g/dL (30-55); Mean Corpuscular Hemoglobin 29.8 pg (27-33); Mean Corpuscular Volume 94.3 fl (85-98); Mean Platelet Volume 11.3 fL (7.4-10.4); Platelet Count 190 10^3/cmm (157-399); Red Blood Count 3.15 10^6/uL (3.85-5.65); Red Cell Distribution Width 13.6 % (12.1-15.1); White Blood Count 15.43 10^3/uL (3.29-11.43)
[2024-04-19 03:50] VITALS: BP 109/64; PULSE 81; RESP 16; TEMP 36.8
--- NOTE | 2024-04-19 08:00 | ANE.PACU2 ---
Inpatient post-anesthesia follow up: Airway intact: Yes Vital signs: Temperature 97.9 F Pulse Rate 92 Respiratory Rate 16 Blood Pressure 112/68 Pulse Oximetry 98 Oxygen Delivery Me thod Room Air Oxygen Flow Rate Fraction of Inspir ed Oxygen Hydration adequate: Yes Nausea and vomiting: No Pain level: 1 Mental status: Baseline Epidural Start/End: Epidural Start Date: 04/18/24 Epidural Start Time: 00:00 Epidural End Date: 04/18/24 Epidural End Time: 00:32
[2024-04-19] MEDS: ibuprofen 800 mg tablet PO ×2 (09:54→16:02)
[2024-04-19] MEDS: PRENATAL VIT NO.130/IRON/FOLIC 1 EACH TABLET PO (09:54)
[2024-04-19] MEDS: docusate sodium 100 mg Capsule PO (09:54)
[2024-04-19 09:55] VITALS: BP 105/67; PULSE 96; RESP 16; TEMP 36.6
[2024-04-19 15:30] VITALS: BP 112/68; PULSE 92; RESP 16; TEMP 36.6; O2SAT 98
== END 2024-04-19 16:22 | disposition home or self-care (01) | DRG 807 ==
LOC: OPOB 04-25 07:50
PROVIDERS: Obstetrics & Gynecology; Admitting Provider Obstetrics & Gynecology; PCP Pediatrics Adolescent Medicine; Visit Provider Obstetrics & Gynecology
DX: O99.02 Anemia complicating childbirth (principal); Z37.0 Single live birth; Z3A.39 39 weeks gestation of pregnancy; F41.9 Anxiety disorder, unspecified; F32.A Depression, unspecified; O99.344 Other mental disorders complicating childbirth; O70.0 First degree perineal laceration during delivery; Z87.891 Personal history of nicotine dependence
CPT/HCPCS: 36415; 51702; 59025; 59409; 85025; 85027; 86850; 86900; 96374; J2405; J2590; J2795; J7120; J7121; J9999

== ENCOUNTER 2024-05-11 07:51 | Emergency (ER) | payer MEDICAID, SELFPAY ==
[2024-05-11] VITALS (22 sets, daily range): BP systolic 99–138; BP diastolic 68–89; PULSE 68–91; RESP 24; TEMP 36.5; O2SAT 95–100; BMI 30.4
[2024-05-11 08:45] LABS: Basophils # 0.1 10^3/uL (0.0-0.1); Basophils % 0.7 %; Eosinophils # 0.3 10^3/uL (0.0-0.8); Hematocrit 40.8 % (36-47); Lymphocytes # 1.8 10^3/uL (0.8-4.8); Lymphocytes % 25.3 %; Mean Corpuscular HGB Conc 30.9 g/dL (30-55); Mean Corpuscular Hemoglobin 28.7 pg (27-33); Mean Corpuscular Volume 92.9 fl (85-98); Mean Platelet Volume 10.4 fL (7.4-10.4); Monocytes # 0.6 10^3/uL (0.2-0.9); Monocytes % 8.1 %; Neutrophils # 4.31 10^3/uL (1.8-7.7); Neutrophils % 61.6 %; Nucleated Red Blood Cells % 0 %; Platelet Count 369 10^3/cmm (157-399); Red Blood Count 4.39 10^6/uL (3.85-5.65); Red Cell Distribution Width 12.5 % (12.1-15.1)
--- NOTE | 2024-05-11 08:47 | ED_ITS ---
HPI - Abdominal Pain 2 General: Chief Complaint: Abdominal Pain Stated Complaint: abdominal pain Time Seen by Provider: 05/11/24 07:57 History of Present Illness: 23-year-old female who presents emergenc y room with complaint of right lower quadrant pain began last night. Patient was a pain in her right flank rating down to the groin she denies any hematuria or dysuria. She does have some discolored vaginal discharge. She is proximately 3 weeks . Has had vomiting and diarrhea denies medic easy melena hematemesis coffee-ground emesis. Associated Symptoms: Reports diarrhea, nausea and vomiting; Denies chills, dysuria and fever(s) Related Data Previous Rx's ?Medication ?Instructions ?Recorded ciprofloxacin HCl 500 mg tablet 500 mg PO BID #20 tabs 05/11/24 Allergies Allergy/AdvReac Type Severity Reaction Status Date / Time No Known Allergies Allergy Verified 05/11/24 08:14 Review of Systems 2 Const: Denies: fever(s) or chills Card: Denies: chest pain Resp: Denies: dyspnea GI: Reports: abdominal pain, nausea, vomiting and diarrhea : Reports: vaginal discharge; Denies: dysuria, urinary frequency or urinary urgency Musc: Denies: neck pain or back pain Skin/Breast: Denies: rash PFSH ED 2 PFSH: Medical History Vaginal delivery 39 weeks gestation of No pertinent past medical history neghx: htn, dm, thyroid, dvt/pe PCP: none PCOS (polycystic ovarian syndrome) Surgical History No pertinent past surgical history Family History Denies family history of Colon cancer Ovarian cancer Diabetes Heart disease Breast cancer Hypertension Uterine cancer Thyroid disease Stroke Social History Smoking and tobacco/nicotine status: former use of tobacco/nicotine (10/2023) Physical Exam 2 Const: GENERAL APPEARANCE: cooperative ORIENTATION/CONSCIOUSNESS: Yes awake, Yes oriented to person, Yes oriented to place and Yes oriented to time HENMT: COMMON NORMALS: normocephalic, atraumatic and hearing grossly normal bilaterally HEAD & SCALP: normocephalic and atraumatic Resp: COMMON NORMALS: normal respiratory effort, No retractions, No use of accessory muscles and clear to auscultation bilaterally AUSCULTATION: clear to auscultation bilaterally Cardio: COMMON NORMALS: regular rate, regular rhythm and No murmurs present (Cardio) RATE: regular rate RHYTHM: regular rhythm GI: COMMON NORMALS: No hepatosplenomegaly present AUSCULTATION: Yes normoactive bowel sounds PALPATION: Yes Tenderness to palpation present (GI), No Guarding due to palpation present (GI) and Yes No hepatosplenomegaly present Extremity: COMMON NORMALS: normal to inspection, capillary refill normal, no clubbing, cyanosis or edema, no calf tenderness and no pedal edema Neuro: SENSORIUM/ORIENTATION: Yes oriented to person, Yes oriented to place and Yes oriented to time Skin: COMMON NORMALS: no rashes or lesions noted GENERAL SKIN EXAM: no rashes or lesions noted Course 2 Vital Signs: Vital signs: Vital Signs Temperature 97.7 F 05/11/24 08:06 Pulse Rate 68 05/11/24 09:11 Respiratory Rate 24 H 05/11/24 08:06 Blood Pressure 111/86 05/11/24 10:40 Pulse Oximetry 97 05/11/24 10:40 Oxygen Delivery Me thod Room Air 05/11/24 08:06 MDM - Abdominal Pain Medical Decision Making Presentation consistent with nephrolithiasis on CT there is evidence of having recently passed stone to 3.3 mm stone within the bladder and evidence of mild hydronephrosis. She also has signs of an acute urinary tract infection on her urine. White count not significantly elevated. Discharge home discussed with her she likely had a kidney stone and also Luxiq has a concurrent infection will start on oral antibiotics. Strain is urine for stone and will make arrangements for follow-up with urology Medical Records I reviewed the patient's medical records. Lab Data I reviewed the patient's lab results. 05/11/24 08:40 05/11/24 08:40 Labs/Radiology: Radiology Impressions Abdomen/Pelvis CT 05/11/24 10:07 IMPRESSION: 1. Very slight dilatation of the RIGHT renal pelvis and periureteral stranding. No obstructing calcification within the ureter. 2. In the dependent portion of the urinary bladder is a 3.3 mm calcification. This stone may have been recently extruded from the LEFT ureter into the bladder. 3. Additional nonobstructing very small bilateral renal calcifications. 4. Normal appendix. 5. Uterine enlargement consistent with recent vaginal . Laboratory Results WBC 7.00 10^3/uL (3.29-11.43) 05/11/24 08:40 RBC 4.39 10^6/uL (3.85-5.65) 05/11/24 08:40 Hgb 12.60 g/dL (11.27-16.99) 05/11/24 08:40 Hct 40.8 % (36-47) 05/11/24 08:40 MCV 92.9 fl (85-98) 05/11/24 08:40 MCH 28.7 pg (27-33) 05/11/24 08:40 MCHC 30.9 g/dL (30-55) 05/11/24 08:40 RDW 12.5 % (12.1-15.1) 05/11/24 08:40 Plt Count 369 10^3/cmm (157-399) 05/11/24 08:40 MPV 10.4 fL (7.4-10.4) 05/11/24 08:40 Neut % (Auto) 61.6 % 05/11/24 08:40 Lymph % (Auto) 25.3 % 05/11/24 08:40 [place] % (Auto) 8.1 % 05/11/24 08:40 Eos % (Auto) 4.0 % 05/11/24 08:40 Baso % (Auto) 0.7 % 05/11/24 08:40 Neut # (Auto) 4.31 10^3/uL (1.8-7.7) 05/11/24 08:40 Lymph # (Auto) 1.8 10^3/uL (0.8-4.8) 05/11/24 08:40 [place] # (Auto) 0.6 10^3/uL (0.2-0.9) 05/11/24 08:40 Eos # (Auto) 0.3 10^3/uL (0.0-0.8) 05/11/24 08:40 Baso # (Auto) 0.1 10^3/uL (0.0-0.1) 05/11/24 08:40 Nucleated RBC % (auto) 0 % 05/11/24 08:40 Nucleated RBCs # 0.0 /100WBC 05/11/24 08:40 Sodium 140 mmol/L (136-145) 05/11/24 08:40 Potassium 4.0 mmol/L (3.5-5.1) 05/11/24 08:40 Chloride 107 mmol/L (98-107) 05/11/24 08:40 Carbon Dioxide 22 mmol/L (22-29) 05/11/24 08:40 Anion Gap 15.0 (5-19) 05/11/24 08:40 BUN 10 mg/dL (6-20) 05/11/24 08:40 Creatinine 1.0 mg/dL (0.5-0.9) H 05/11/24 08:40 GFR Calculation 68.7 mL/min (90-130) L 05/11/24 08:40 Glucose 102 mg/dL (65-115) 05/11/24 08:40 Calculated Osmolality 289 mOsm/kg (285-295) 05/11/24 08:40 Calcium 8.9 mg/dL (8.5-10.5) 05/11/24 08:40 Total Bilirubin 0.2 mg/dL (0.15-1.2) 05/11/24 08:40 AST 23 U/L (0-32) 05/11/24 08:40 ALT 37 U/L (0-33) H 05/11/24 08:40 Alkaline Phosphatase 91 U/L (35-105) 05/11/24 08:40 Total Protein 7.5 g/dL (6.6-8.7) 05/11/24 08:40 Albumin 4.1 g/dL (3.5-5.2) 05/11/24 08:40 Globulin 3.4 g/dL (1.3-4.6) 05/11/24 08:40 HCG, Qual Negative (Negative) 05/11/24 08:40 Urine Color Yellow (Yellow) 05/11/24 09:06 Urine Appearance Cloudy (CLEAR) A 05/11/24 09:06 Urine pH 6 (5-7) 05/11/24 09:06 Ur Specific [place] 1.020 (1.005-1.030) 05/11/24 09:06 Urine Protein 1+ (Negative) H 05/11/24 09:06 Urine Glucose (UA) Norm (Normal) 05/11/24 09:06 Urine Ketones Negative (Negative) 05/11/24 09:06 Urine Blood 3+ (Negative) H 05/11/24 09:06 Urine Nitrate Negative (Negative) 05/11/24 09:06 Urine Bilirubin Neg (Negative) 05/11/24 09:06 Urine Urobilinogen Neg mg/dL (Negative) 05/11/24 09:06 Ur Leukocyte Esterase 2+ (Negative) H 05/11/24 09:06 Urine RBC >100 /hpf (0-2) H 05/11/24 09:06 Urine WBC >100 /hpf (0-5) H 05/11/24 09:06 Ur Squamous Epith Cells 51-100 /hpf (0-5) 05/11/24 09:06 Amorphous Sediment Not Reportable 05/11/24 09:06 Urine Bacteria 4+ /hpf (NONE) H 05/11/24 09:06 Hyaline Casts 2.46 /lpf 05/11/24 09:06 C. trachomatis (PCR) Not detected 05/11/24 09:06 N. gonorrhoeae (PCR) Not detected 05/11/24 09:06 All radiology interpretation(s) finalized by discharge Discharge Plan Discharge Patient Disposition: Home Clinical Impression: Right nephrolithiasis Condition: Stable Prescriptions: New ciprofloxacin HCl 500 mg tablet 500 mg PO BID Qty: 20 0RF Discharge Orders: Discharge ED (Routine); Ordered 05/11/24 Ordered By: Jose Manuel Nur Referrals: Isabella Glaser MD [Primary Care Provider] - Discharge Diet: Usual diet Discharge Activity: Resume usual activity Patient Instructions: Kidney Stones (ED), Urinary Tract Infection in Women (ED), How to Strain Your Urine (ED), Opioid Safety, Pain Management Activity Restrictions/Additional Instructions: Thank you for choosing [facility] for your healthcare needs today. It is very important that you follow up as instructed or that you return to the Emergency Department should you have concerns or if your condition changes or worsens in any way. You are seen in the emergency room with right-sided flank pain which was very suggestive of kidney stones. CT shows evidence of having recently passed a kidney stone this was also consistent with your urinalysis. Urinalysis also showed signs of a mild bladder infection. Once the stone passes from the ureter into the bladder it is much easier to pass it does not cause nearly the amount of pain does traveling from the kidney to the bladder. Recommend that you strain your urine so that the stone can be analyzed. Will also start you on oral antibiotics 1 pill twice a day for 7 days. Case management make arrangements for you to follow-up with a urologist. Print Language: French Coding Level of Care Code ED Clinical Assistant Professor for Briana Powell
[2024-05-11 09:04] LABS: HCG, Serum Qual Negative (Negative)
[2024-05-11 09:06] LABS: Alanine Aminotransferase 37 U/L (0-33); Albumin Level 4.1 g/dL (3.5-5.2); Alkaline Phosphatase 91 U/L (35-105); Aspartate Amino Transferase 23 U/L (0-32); Blood Urea Nitrogen 10 mg/dL (6-20); Calcium 8.9 mg/dL (8.5-10.5); Carbon Dioxide 22 mmol/L (22-29); Chloride 107 mmol/L (98-107); Creatinine Clr Calc Pharmacy 93.1001; Globulin 3.4 g/dL (1.3-4.6); Glomerular Filtration Rate 68.7 mL/min (90-130); Glucose 102 mg/dL (65-115); Osmolality Calculated 289 mOsm/kg (285-295); Sodium 140 mmol/L (136-145); Total Bilirubin 0.2 mg/dL (0.15-1.2); Total Protein 7.5 g/dL (6.6-8.7)
[2024-05-11] MEDS: ketorolac 30 mg/mL INJ IVP (09:08)
[2024-05-11] MEDS: ondansetron 2 mg/ML SDV 2 mL 4 MG IVP (09:08)
[2024-05-11] MEDS: morphine 4 mg/mL SDV 1 mL IVP (09:09)
[2024-05-11 09:11] LABS: Add Urine Microscopic? NO
[2024-05-11 09:18] LABS: Bacteria Urine 4+ /hpf; Hyaline Casts Urine 2.46 /lpf; RBC Urine >100 /hpf (0-2); WBC Urine >100 /hpf (0-5)
[2024-05-11 09:29] LABS: Urine Appearance Cloudy (CLEAR); Urine Color Yellow (Yellow)
[2024-05-11 09:30] LABS: Bilirubin Urine Neg (Negative); Blood Urine 3+ (Negative); Glucose Urine UA Norm (Normal); Ketones Urine Negative (Negative); Leukocyte Esterase Urine 2+ (Negative); Nitrate Urine Negative (Negative); Protein Urine 1+ (Negative); UA Slide Review UA Slide Review Perf; Urobilinogen Urine Neg (Negative); pH Urine 6 (5-7)
[2024-05-11 09:31] LABS: Charge for UA Resulting for Rev
[2024-05-11 09:36] LABS: Add Urine Culture? No; Squamous Epithelial Cell Urine 51-100 /hpf (0-5)
--- NOTE | 2024-05-11 10:07 | CT_ITS ---
WS: [id number] CT ABDOMEN AND PELVIS NONCONTRAST HISTORY: flank pain, right-sided abdominal pain. TECHNIQUE: Imaging performed through the abdomen and pelvis. Coronal and sagittal reformats are submitted. All CT scans at [facility] use at least one of these dose optimization techniques: automated exposure control; mA and/or kV adjustment per patient size (includes targeted exams where dose is matched to clinical indication); or iterative reconstruction. DLP: 692.60 mGy.cm COMPARISON: None available. Lower thorax: Lung bases are clear. Visualized heart is normal. No hiatal hernia. Liver: Mild hepatomegaly. No mass or intrahepatic duct dilatation. Gallbladder: Gallbladder remains normal size with no adjacent inflammation. Normal common bile duct. Pancreas: Normal size and attenuation. Normal pancreatic duct. No pancreatitis or mass. Spleen: Normal. Adrenal glands: Normal. No mass. Right kidney: Very slight dilatation of the RIGHT renal pelvis and mild periureteral stranding. Nonobstructing calcification lower pole RIGHT kidney. Left kidney: Normal size kidney with no hydronephrosis. Nonobstructing 3 mm calcification upper pole. No ureteral dilatation. Aorta: Normal abdominal aorta, no aneurysm or atherosclerosis. No free fluid, intraperitoneal air or significant lymphadenopathy. GI tract: Normal noncontrast imaging of the stomach, small bowel and colon. No obstruction or wall thickening. Normal appendix. Abdominal wall: Negative. No hernia. Pelvis: Uterus is enlarged consistent with recent vaginal . 3.3 mm stone in the dependent portion of the urinary bladder. There is an additional calcification on the LEFT which is probably a phlebolith as it does appear to be external to the bladder. Osseous structures: Unremarkable. CT/CT kidney stone [id number] IMPRESSION: 1. Very slight dilatation of the RIGHT renal pelvis and periureteral stranding . No obstructing calcification within the ureter. 2. In the dependent portion of the urinary bladder is a 3.3 mm calcification. This stone may have been recently extruded from the LEFT ureter into the bladde r. 3. Additional nonobstructing very small bilateral renal calcifications. 4. Normal appendix. 5. Uterine enlargement consistent with recent vaginal .
[2024-05-11 10:44] LABS: Chlamydia Trachomatis NOT DETECTED; Neisseria Gonorrhea NOT DETECTED
--- NOTE | 2024-05-12 07:29 | DCPLANNER ---
faxed referral packet to [facility]
== END 2024-05-11 11:12 | disposition home or self-care (01) ==
PROVIDERS: Emergency Provider Family Medicine; PCP Pediatrics Adolescent Medicine
DX: N20.0 Calculus of kidney (principal); Z87.891 Personal history of nicotine dependence
CPT/HCPCS: 74176; 80053; 81003; 84703; 85025; 87491; 87591; 96374; 96375; 99285; J1885; J2270; J2405

== ENCOUNTER → 2024-05-25 15:03 | Outpatient (BNVA) | payer MEDICAID, SELFPAY | PROVIDERS: PCP Pediatrics Adolescent Medicine; Visit Provider Nurse Practitioner Women's Health | DX: O28.2 Abnormal cytological finding on antenatal screening of mother (principal) | CPT/HCPCS: 87624 ==

== ENCOUNTER → 2024-06-01 13:45 | Outpatient (BNVA) | payer MEDICAID, SELFPAY | PROVIDERS: PCP Pediatrics Adolescent Medicine; Visit Provider Nurse Practitioner Women's Health | DX: Z30.017 Encounter for initial prescription of implantable subdermal contraceptive (principal); E28.2 Polycystic ovarian syndrome | CPT/HCPCS: 81025 ==

== ENCOUNTER → 2024-06-02 11:48 | Outpatient (BNVA) | payer MEDICAID, SELFPAY | PROVIDERS: PCP Pediatrics Adolescent Medicine; Visit Provider Nurse Practitioner Women's Health | DX: E28.2 Polycystic ovarian syndrome (principal); Z30.017 Encounter for initial prescription of implantable subdermal contraceptive | CPT/HCPCS: 80053; 83036; 83525 ==

== ENCOUNTER → 2024-10-17 13:54 | Outpatient (BNVA) | payer MEDICAID, SELFPAY | PROVIDERS: PCP Pediatrics Adolescent Medicine; Visit Provider Family Medicine | DX: R05.9 Cough, unspecified (principal) | CPT/HCPCS: 87426 ==

== ENCOUNTER 2024-11-06 10:46 | Outpatient (CLI) | payer MEDICAID, SELFPAY ==
--- NOTE | 2024-11-06 11:08 | XR_ITS ---
WS: [id number] XR lumbar spine 2-3V* [id number] REASON FOR EXAM: LOW BACK PAIN, CHRONIC, POLYCYSTIC OVARIAN SYNDROME FINDINGS: Mild rotatory levoscoliosis. Exaggeration of the lordosis. No vertebral body compression deformity or focal vertebral body lesion. Intervertebral disc spaces are intact and well preserved. No spondylolysis or significant spondylolisthesis. XR/XR lumbar spine 2-3V* [id number] IMPRESSION: Alteration of the lumbar spine curvatures as above.
--- NOTE | 2024-11-06 11:08 | XR_ITS ---
WS: [id number] XR sacrum coccyx min 2V [id number] REASON FOR EXAM: LOW BACK PAIN, CHRONIC, POLYCYSTIC OVARIAN SYNDROME FINDINGS: Sacroiliac joints and sacrum are normal. No fracture or dislocation of the coccyx. XR/XR sacrum coccyx min 2V [id number] IMPRESSION: No significant abnormality.
== END 2024-11-06 10:47 | disposition home or self-care (01) ==
LOC: RAD 10:48
PROVIDERS: PCP Pediatrics Adolescent Medicine; Visit Provider Nurse Practitioner Family
DX: M54.59 Other low back pain (principal)
CPT/HCPCS: 72100; 72220